=== PATIENT | male | born 1950 | race Hispanic/Latino ===

== ENCOUNTER 2021-05-02 09:34 | Day surgery (SDC) | payer MEDICARE ==
[2021-05-02] MEDS ORDERED: SODIUM CHLORIDE 0.9% 1000 ML 1,000 ML IV SCH (10:00)
--- NOTE | 2021-05-02 10:26 | Anesthesia Day of Surgery ---
Anesthesia Day of Surgery - Day of Surgery Patient Examined: Yes Patient H&P Reviewed: Yes Patient is NPO: Yes Beta Blockers: Yes
--- NOTE | 2021-05-02 10:28 | Anesthesia Consultation ---
Anesthesia Consult and Med Hx Date of service: 05/02/21 - Airway Anesthetic Teeth Evaluation: Crowns ROM Head & Neck: Adequate Mental/Hyoid Distance: Adequate Mallampati Class: Class II Intubation Access Assessment: Good - Pre-Operative Health Status ASA Pre-Surgery Classification: ASA3 Proposed Anesthetic Plan: General (MAC; GA if needed), MAC - Pulmonary Hx Smoking: Yes (Quit 6 weeks ago) Hx Respiratory Symptoms: No (+2FS) - Cardiovascular System Hx Hypertension: Yes Hx Coronary Artery Disease: Yes (Cardiomyopathy EF 55-60%) Hx Cardia Arrhythmia: Yes (A-Flutter/A-Fib) Hx Peripheral Vascular Disease: Yes (AAA) - Endocrine Hx Non-Insulin Dependent Diabetes: No Hx Thyroid Disease: No
[2021-05-02 10:40] LABS: Basophils % (Auto) 0.7 % (0.0-1.8); Eosinophils # (Auto) 0.2 K/mm3 (0.0-0.4); Eosinophils % (Auto) 3.7 % (0.0-4.3); Hematocrit 41.6 % (35.5-45.6); Hemoglobin 14.7 gm/dl (11.8-15.2); Lymphocytes # (Auto) 1.5 K/mm3 (1.2-5.4); Lymphocytes % (Auto) 22.1 % (13.4-35.0); Mean Corpuscular HGB Conc 35 % (32-34); Mean Corpuscular Volume 96 fl (84-94); Monocytes # (Auto) 0.7 K/mm3 (0.0-0.8); Monocytes % (Auto) 10.4 % (0.0-7.3); Platelet Count 221 K/mm3 (140-440); Red Blood Count 4.33 M/mm3 (3.65-5.03); Red Cell Distribution Width 15.9 % (13.2-15.2)
[2021-05-02 10:48] LABS: Blood Urea Nitrogen 20 mg/dL (9-20); Hemolysis Index 77
[2021-05-02 10:50] LABS: BUN/Creatinine Ratio 29
[2021-05-02 10:51] LABS: INR 0.93 (0.87-1.13)
[2021-05-02 10:52] LABS: Partial Thromboplastin Time 27.6 Sec. (24.2-36.6)
[2021-05-02] MEDS ORDERED: propofoL 200 MG/20 ML VIAL IV ONE (11:12)
[2021-05-02] MEDS ORDERED: LIDOCAINE MPF (2%) 20 MG/1 ML VIAL 5 ML ONE (11:12)
--- NOTE | 2021-05-02 11:42 | Short Stay Summary ---
Short Stay Documentation Date of service: 05/02/21 - History H&P: obtained from office - Allergies and Medications Current Medications: Allergies No Known Allergies Allergy (Verified 05/02/21 09:54) Home Medications Medication Instructions Recorded Confirmed Last Taken Type Apixaban [Eliquis] 5 mg PO BID 05/02/21 05/02/21 05/02/21 10:48 History 5 mg Atorvastatin [Lipitor Tab] 80 mg PO QHS 05/02/21 05/02/21 05/01/21 History 80 mg Ezetimibe [Zetia] 10 mg PO DAILY 05/02/21 05/02/21 05/01/21 History 10 mg carvediloL [Coreg] 12.5 mg PO BID 05/02/21 05/02/21 05/01/21 History 12.5 mg lisinopriL [Lisinopril] 10 mg PO DAILY 05/02/21 05/02/21 05/01/21 History 10 mg Active Medications Sodium Chloride (Nacl 0.9% 1000 Ml) 1,000 mls @ 42 mls/hr IV DIRECT DAVID Last Admin: 05/02/21 10:40 Dose: 42 mls/hr Documented by: - Brief post op/procedure progress note Date of procedure: 05/02/21 Pre-op diagnosis: Afib Anesthesia: local Estimated blood loss: none - Disposition Condition at discharge: Good Disposition: 01 HOME / SELF CARE / HOMELESS - Discharge Diagnoses (1) Afib Status: Acute (2) CAD (coronary artery disease) Status: Acute (3) Cardiomyopathy Status: Acute Short Stay Discharge Plan Activity: advance as tolerated Diet: low fat, low cholesterol, low salt Follow up with: ARAMIS CHAVEZ MD [Staff Physician] - 05/19/21 10:30 am (Patient has a follow up with Dr. Chavez on 05/19/2021 at 10:30am in our [place] office. Phon [phone])
--- NOTE | 2021-05-02 11:43 | Electrocardiograph Report ---
[facility] Test Date: 2021-05-02 Test Time: 10:15:36 Pat Name: SILVER NAVA Department: Room: Gender: M [employer] Supervisor: JENSEN : 1950 Requested By: ISH CHAVEZ Order Number: [id number] Reading MD: Ish Chavez Measurements Intervals [place] Rate: 63 P: [place]: QRS: -18 QRSD: 136 T: 86 QT: 427 QTc: 445 Interpretive Statements Atrial fibrillation nonspecific st-t No previous ECG available for comparison Electronically Signed On 05-02-2021 11:43:04 EDT by Ish Chavez
--- NOTE | 2021-05-02 11:55 | Cardiac Catherization Report ---
DATE OF SERVICE: 05/02/2021 CARDIOVERSION CLINICAL INFORMATION: This is a 71-year-old male with history of coronary artery disease, mild cardiomyopathy, has atrial fibrillation, here for a cardioversion being on appropriate medication or anticoagulation. I explained the risks and benefits. ANESTHESIA: As per anesthesiologist. DESCRIPTION OF PROCEDURE: The patient was successfully cardioverted with biphasic 360 joules from atrial fibrillation to sinus rhythm. The patient tolerated the procedure well. RECOMMENDATIONS: The patient will follow up with Cardiology in one to two weeks. Discussed this with the patient's in detail. TID: [id number] RECEIPT: [id number] VRM/VIS
[2021-05-02 12:46] VITALS: BP 123/76
--- NOTE | 2021-05-02 17:53 | Post Anesthesia Evaluation ---
- Post Anesthesia Evaluation Patient Participated: Yes Airway Patent: Yes Stable Respiratory Function: Yes Nausea/Vomiting: No Temp > 96.8F: Yes Pain Manageable: Yes Adequeate Hydration: Yes Anesthesia Complications: No Block Receding Appropriately: Not Applicable Patient on Ventilator: No
--- NOTE | 2021-05-03 10:03 | Electrocardiograph Report ---
[facility] Test Date: 2021-05-02 Test Time: 11:34:04 Pat Name: SILVER NAVA Department: Room: Gender: M Oncologist: JENSEN : 1950 Requested By: ISH CHAVEZ Order Number: [id number] Reading MD: Ish Chavez Measurements Intervals [place] Rate: 69 P: 38 [place]: 187 QRS: 3 QRSD: 138 T: 68 QT: 428 QTc: 457 Interpretive Statements Sinus rhythm Left atrial enlargement nonspecific st-t Compared to ECG 05/02/2021 10:15:36 Atrial abnormality now present Atrial fibrillation no longer present Electronically Signed On 05-03-2021 10:03:30 EDT by Ish Chavez
== END 2021-05-02 13:00 | disposition home or self-care (01) ==
LOC: CATHLABREC 09:34 → EDSTATUS 11:15 → CATHLABREC 13:00
PROVIDERS: ATTEND Internal Medicine
DX: I48.19 Other persistent atrial fibrillation (principal); I49.1 Atrial premature depolarization; I25.10 Atherosclerotic heart disease of native coronary artery without angina pectoris; I10 Essential (primary) hypertension; I77.810 Thoracic aortic ectasia; E78.00 Pure hypercholesterolemia, unspecified; Z87.891 Personal history of nicotine dependence; Z79.899 Other long term (current) drug therapy; Z98.890 Other specified postprocedural states
CPT/HCPCS: 36415; 80048; 85025; 85610; 85730; 92960; 93005; J2704; J7030